=== PATIENT | male | born 1985 | race Caucasian/White ===

== ENCOUNTER 2020-05-12 06:54 | Outpatient (NON) | payer BC, SELFPAY ==
[2020-05-13 01:18] LABS: SARS-CoV-2 RNA PCR Negative
== END 2020-05-12 06:55 ==
PROVIDERS: PCP Family Medicine; Visit Provider Surgery
DX: Z20.828 Contact with and (suspected) exposure to other viral communicable diseases (principal); R50.9 Fever, unspecified; R52 Pain, unspecified
CPT/HCPCS: 87635; C9803; U0003

== ENCOUNTER 2022-07-16 04:48 | Observation (INO) | payer BC, SELFPAY ==
[2022-07-16] VITALS (38 sets, daily range): BP systolic 125–184; BP diastolic 69–115; PULSE 89–126; RESP 7–27; TEMP 36.4–37; O2SAT 88–100; BMI 30.9
--- NOTE | ~2022-07-16 | XR_ITS ---
Clinical Indication: Shortness of breath PA and lateral views of the chest: Comparison: None Findings: The lungs are clear, without evidence of focal consolidation or pleural effusion. Cardiome diastinal silhouette is within normal limits. Bones and soft tissues are unremarkable. Impression: Normal chest. Reviewed, dictated and finalized at [facility]. 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
--- NOTE | ~2022-07-16 | CT_ITS ---
EXAMINATION: CTA chest PE protocol DATE: 07/16/2022 17:48 INDICATION: hypoxia, shortness of breath TECHNIQUE: Computed tomography angiography (CTA) of the chest was performed with 100 mL Omnipaque-350 intravenous contrast timed to evaluate the pulmonary arteries. Coronal maximum intensity projection 3D-reconstructions were created by the technologist. The dose-length product (DLP) was 429.41 mGy-cm. Automated exposure control and iterative reconstruction technique were employed. COMPARISON: X-ray chest, same date. FINDINGS: Lung parenchyma and airways: Clear. Pleura: Unremarkable. Thoracic inlet, axillae and chest wall: Unremarkable. Thoracic aorta: Normal. Mediastinum: Normal. Heart and pericardium: Normal. Coronary artery calcifications: Absent. Upper abdomen: No significant finding. Bones: No acute osseous finding. Pulmonary arteries: Study quality: Degraded by slightly late contrast phase, moderate motion, and saloni m hardening, such that subsegmental and non-occlusive segmental emboli could be missed, particularly in the left lower lobe. No pulmonary emboli detected. IMPRESSION: Limited examination as detailed above, particularly with regard to evaluation of the left lower lobe. Within those constraints, no definite CT evidence of acute pulmonary embolus. Reviewed, dictated and finalized at location [facility]. EATION LEADER IMPRESSION: Limited examination as detailed above, particularly with regard to evaluation o f the left lower lobe. Within those constraints, no definite CT evidence of acu te pulmonary embolus.
--- NOTE | 2022-07-16 04:54 | ECG_ITS ---
Measurements Intervals Martin Rate: 121 P: 70 ME: 108 QRS: -6 QRSD: 72 T: 74 QT: 338 QTc: 481 Interpretive Statements SINUS TACHYCARDIA WITH SHORT ME INTERVAL PREMATURE ATRIAL CONTRACTION NONSPECIFIC ST & T-WAVE ABNORMALITY ABNORMAL ECG NO PREVIOUS ECG AVAILABLE FOR COMPARISON Electronically Signed On 07-16-2022 14:11:51 MENTAL HEALTH ORDERLY by Waqas Garcia M.D.
[2022-07-16 05:16] LABS: Basophils Absolute Auto 0.1 K/mm3 (0.0-0.1); Basophils Percent Auto 0.5 % (0.2-1.2); Eosinophils Absolute Auto 0.8 K/mm3 (0-0.3); Eosinophils Percent Auto 6.1 % (0-4.4); Hematocrit 51.8 % (42.0-52.0); Hemoglobin 18.2 g/dL (14.0-18.0); Immature Granulocyte Absolute 0.05 K/mm3 (0.00-0.031); Immature Granulocyte Percent A 0.4 % (0-0.5); Lymphocytes Absolute Auto 2.85 K/mm3 (0.9-3.2); Lymphocytes Percent Auto 21.1 % (18.3-44.2); Mean Corpuscular HGB Conc 35.1 g/dl (32-36); Mean Corpuscular Hemoglobin 31.2 pg (26-34); Mean Corpuscular Volume 88.7 fl (80-100); Mean Platelet Volume 10.3 fl (7.4-10.4); Monocytes Absolute Auto 0.6 K/mm3 (0.1-0.6); Monocytes Percent Auto 4.6 % (2.6-8.5); Neutrophils Absolute Auto 9.1 K/mm3 (1.3-6.7); Neutrophils Percent Auto 67.3 % (45.5-73.1); Platelet Count Result 297 k/mm3 (150-375); Red Blood Count 5.84 M/mm3 (4.6-6.20); White Blood Count 13.5 K/mm3 (4.5-10.0)
[2022-07-16 05:28] LABS: Alanine Aminotransferase 85 U/L (6-50); Albumin Level 4.6 g/dL (3.5-5.1); Alkaline Phosphatase 107 U/L (38-126); Anion Gap 8 mmol/L (8-16); Aspartate Amino Transferase 48 U/L (17-59); Blood Urea Nitrogen 10 mg/dL (9-20); Calcium 8.7 mg/dL (8.4-10.2); Carbon Dioxide 26 mmol/L (22-30); Chloride 106 mmol/L (98-107); Estimated CRCL calculation 103 ml/min; Estimated Glomerular Filt Rate > 60; Glucose 122 mg/dL (65-110); Potassium 3.9 mmol/L (3.4-5.0); Sodium 140 mmol/L (137-145)
--- NOTE | 2022-07-16 05:31 | ED.GENADULT ---
HPI - General Adult General Chief complaint: Shortness of Breath/Dyspnea Stated complaint: SOB Time Seen by Provider: 07/16/22 05:19 History of Present Illness HPI narrative: Patient 37-year-old gentleman who presents the emergency department with chief complaint of shortness of breath. Patient reports that yesterday he started having some coughing and reported that has been nonproductive and reported that started having increasing shortness of breath throughout the day patient states he has been wheezing the patient reports no chest pain no peripheral edema. The patient does report that he has been worse whenever he lays flat and reports that he has had where he gets short of breath with exertion. Patient reports no prior history of cardiac disease reports that he has not had a fever at home. Related Data Allergies Allergy/AdvReac Type Severity Reaction Status Date / Time No Known Allergies Allergy Verified 04/16/22 14:26 Review of Systems Review of Systems: A 10 system review of systems was completed on the patient and is negative except for what is stated in the HPI. Nursing and ancillary documentation was reviewed. [facility] Past Medical History Medical History Attention deficit hyperactivity disorder, predominantly inattentive type Cubital tunnel syndrome on right Family history of diabetes mellitus Obesity (BMI 30.0-34.9) Family History Family History Other Family history of diabetes mellitus Social History Social History Smoking status: Smoker, status unknown Alcohol intake: current Exam Narrative: GENERAL: Well-appearing, well-nourished, and in no acute distress. HEAD: Normocephalic, atraumatic. EYES: PERRLA and EOMI. ENT: Nares clear, no rhinorrhea or epistaxis. Mucous membranes moist. NECK: Supple. CHEST: Scattered wheezes to auscultation. No respiratory distress. HEART: Regular rate and rhythm. No murmur heard. Normal peripheral pulses. ABDOMEN: Soft, nontender, nondistended, normal active bowel sounds. EXTREMITIES: Normal range of motion. No edema. SKIN: Warm, dry, no rash. NEURO: No focal deficits. Alert and oriented x3. PSYCH: Normal mood and affect. Course Vital Signs Vital signs: Vital Signs Temperature 37.0 C 07/16/22 04:52 Pulse Rate 126 H 07/16/22 04:52 Respiratory Rate 26 H 07/16/22 04:52 Blood Pressure 184/104 H 07/16/22 04:52 Pulse Oximetry 90 07/16/22 04:52 Oxygen Delivery Room Air 07/16/22 04:52 Temperature 36.8 C 07/16/22 04:55 Pulse Rate 106 H 07/16/22 06:37 Respiratory Rate 26 H 07/16/22 06:37 Blood Pressure 134/87 07/16/22 06:37 Pulse Oximetry 90 07/16/22 06:37 Oxygen Delivery Nasal Cannula 07/16/22 06:10 Oxygen Flow Rate 2 07/16/22 06:10 Medical Decision Making MDM Narrative Medical decision making narrative: Differential diagnosis includes CHF, pneumonia, pulmonary embolism, ACS, bronchitis, bronchospasm COVID-19/influenza Patient was actively wheezing in the emergency department given 6 mg of Decadron and a DuoNeb was ordered for the patient. Chest x-ray interpreted by me showed no widened mediastinum no pneumothorax no focal infiltrate. The patient was ambulated his oxygen saturation went down to 89%. The patient is feeling much better at this time but is requiring supplemental oxygen with ambulation. In discussions with the patient's father who is a surgeon at our facility we are both concerned about the oxygen requirement and the plan will be to admit the patient Vital Signs Vital Signs: Vital Signs Temperature 37.0 C 07/16/22 04:52 Pulse Rate 126 H 07/16/22 04:52 Respiratory Rate 26 H 07/16/22 04:52 Blood Pressure 184/104 H 07/16/22 04:52 Pulse Oximetry 90 07/16/22 04:52 Oxygen Delivery Room Air 07/16/22 04:52
[2022-07-16] MEDS: BENZONATATE 100 MG CAPSULE 200 MG PO (05:36)
[2022-07-16] MEDS: ALBUTEROL SULFATE NEB 2.5 MG/3 ML INH INHALATION ×3 (05:41→20:12)
[2022-07-16] MEDS: IPRATROPIUM BR 0.02% INH SOLN 0.5 MG/2.5 ML VIAL INHALATION ×3 (05:41→20:12)
[2022-07-16 05:59] LABS: Magnesium 2.1 mg/dL (1.6-2.3)
--- NOTE | 2022-07-16 06:00 | PC.NURSE ---
Pt reports feeling much better after his breathing treatment, but wheezes are still heard throughout. Dr. Taylor notified.
[2022-07-16 06:01] LABS: Lactic Acid Reflex 1.3 mmol/L (0.7-2.0)
[2022-07-16 06:11] LABS: NT Pro B Type Natriuretic Pept < 20 pg/mL (19.9-100); Troponin I < 0.012 ng/mL (0.000-0.034)
[2022-07-16 06:19] LABS: D Dimer 0.37 ug/mL (<0.48)
[2022-07-16 06:20] LABS: Influenza A QL RT-PCR Negative (Negative); Influenza B QL RT-PCR Negative (Negative); RSV RNA, RT-PCR Negative (Negative); SARS-CoV-2 RNA PCR Negative
--- NOTE | 2022-07-16 06:47 | PC.NURSE ---
Walking oxygen saturation maintained 89-91% and his heart rate increased to 128. But pt tolerated ambulating well. Denies any worsening shortness of breath with exertion. Room air oxygen saturation 92% at this time. Dr. Taylor notified.
--- NOTE | 2022-07-16 07:53 | PC.NURSE ---
NC @ 1L to maintain sats >92. Will titrate as needed.
--- NOTE | 2022-07-16 07:57 | PC.NURSE ---
Pt titrated to 2L NC to maintain sats >92. Pt sats 98%
--- NOTE | 2022-07-16 09:14 | ADMGEN ---
This patient, Zak Wilkes, was admitted to Medical Room 341-01. Patient/family oriented to hospital policies and general routines including ID bracelet, bed and alarms, visiting hours, pain management, procedures, bathroom and other care routines, personal items, smoking policy, room service/diet, and visiting hours. Information on how to activate the Rapid Response Team has been discussed. Patient/Family are encouraged to report perceived risks to care and to ask questions if they do not understand what they are told or what they should do.
[2022-07-16] MEDS: predniSONE 20 MG TABLET 40 MG PO (11:03)
--- NOTE | 2022-07-16 12:50 | PM.IMHP ---
H&P: HPI History of Present Illness Date/Time: 07/16/22 12:50 Chief Complaint: Shortness of breath. Narrative: This is a pleasant 37-year-old male, former smoker (20 pack year history, quit 2 years ago) who presented to the emergency department from home for evaluation of shortness of breath. Patient provides the following history. For a couple of months he has had waxing and waning cold symptoms and he has a lingering, dry cough. He and his have a 7-month-old son who is now going to daycare and he initially thought his symptoms were due to viruses that his son picked up from daycare. He completed a Z-Luis Fernando a couple of weeks ago which did not seem to help. Over the last couple of days he has been getting short of breath with exertion and last night he felt as though he cannot take in a deep and he was wheezing throughout the night. He denies fever, chills, sweats, chest pain, pleuritic pain, palpitations, and lower extremity edema. He has no known history of cardiac or pulmonary disease and denies personal and family history of venous thromboembolism. He was afebrile on arrival to the emergency department. His SpO2 has occasionally dipped down into the upper 80s and he is currently on 2 L nasal cannula. Pertinent labs include a WBC count of 13.5, hemoglobin 18.2, D-dimer 0.37, troponin < 0.012, proBNP < 20, AST 85, lactic acid 1.3. He tested negative for influenza, RSV, and COVID. Chest x-ray was unremarkable. He is being admitted in this setting for further evaluation and treatment. Review of Systems Review of Systems: 12 systems were reviewed. No fever. Denies headache and sore throat. No syncope. No nausea, vomiting, or diarrhea. No history asthma or eczema. He had allergy shots when he was younger but still occasionally has seasonal allergy symptoms. He has some concerns for sleep apnea with occasional paroxysmal nocturnal dyspnea. He snores heavily. He has gained about 30 lb in the last year and a half which he attributes to the fact that he is now working from home. Except as documented, all other systems were reviewed and are negative. [facility] Past Medical History Medical History (Updated 07/16/22 @ 16:33 by Loren Donohue PA-C) Attention deficit hyperactivity disorder, predominantly inattentive type Kidney stones Surgical History Surgical History (Updated 07/16/22 @ 16:19 by Loren Donohue PA-C) History of wisdom tooth extraction Family History Family History Other Family history of diabetes mellitus Social History Social History (Updated 07/16/22 @ 16:21 by Loren Donohue PA-C) Social History: Surrogate medical decision maker: Vira Wilkes, spouse. Code status: Full code. Smoking packs per day: 1 Smoking cigarettes per day: 20.0 Years smoked: 20 Smoking pack-years: 20.00 Smoking status: Former smoker Additional smoking assessment comments: Quit about 2000. Alcohol intake: current Alcohol use details: Social alcohol use in moderation. Substance use: never Lack of Transportation: No Lack of Food: Never True Current Housing: I Have Housing Concerned About Future Housing: No Difficulty Paying Gas/Electric Bills: No Difficulty Paying for Meds: No Currently Unemployed: No Education: Decline to Answer Difficulty w/ Childcare or Family Care: No Additional living arrangements comments: Lives with spouse and 7-month-old son in [place]. 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 Spiritual care concerns: No Meds Home Medications and Allergies Home Medications Medication Instructions Recorded Confirmed Type dextroamphetamine-amphetamine 10 10 mg PO BID #60 tabs 03/25/22 07/16/22 Rx mg tablet (Adderall) sildenafil (pulm.hypertension) 20 20 mg PO DAILY 07/16/22 07/16/22 History mg tablet Allergies Allergy/AdvReac Type Severity Reaction Status Date / Time No Kn
[2022-07-16 14:07] LABS: CRP 2.2 mg/dL (<1.0)
[2022-07-16 14:20] LABS: Procalcitonin 0.1 ng/mL
[2022-07-16 18:13] LABS: Alveolar/Arterial O2 Gradient 38.8 mmHg; Base Excess ABG -2.7 mEq/l (+/-2.0); Carboxyhemoglobin 0.2 % THb (0-2.0); Fractional Inspired Oxygen 21 %; HCO3 ABG 20.8 mEq/l (22.0-26.0); Methemoglobin ABG 0.4 %THb (0-1.5); Oxygen Content ABG 22.4 %vol (16.0-22.0); Oxygen Saturation ABG 94.7 % (95.0-100.0); PCO2 ABG 33.1 mmHg (35.0-45.0); PO2 ABG 71.3 mmHg (80.0-100.0); Reduced Hemoglobin 5.4 %THb (0-5.0); pH ABG 7.416 (7.350-7.450)
[2022-07-16 18:14] LABS: Device ROOM AIR; Modified Allen's Test Pass; Site Drawn LEFT RADIAL
--- NOTE | 2022-07-16 18:53 | PM.CNPUL ---
Assessment and Plan Assessment and plan (1) Acute bronchospasm: Code(s): J98.01 - Acute bronchospasm Status: Acute Assessment and Plan: He has had a respiratory syndrome that has been lingering for about 2 months, now with increased coughing and shortness of breath; he failed out-patient azithromycin. He presented with mild hypoxemia, leukocytosis, elevated CRP, with increased heart rate and respiratory rate. He has negative imaging, CXR and CTA. He has an echo pending with bubble study to evaluate for intracardiac shunt. Serologies for influenza A,B, RSV and SARS-Co-V-2 are negative. His pulmonary arteries are prominent on CXR, but not enlarged on CTA. He is feeling better with prednisone, albuterol and ipratropium. I (2) Hypoxia: Code(s): R09.02 - Hypoxemia Status: Acute Assessment and Plan: He has mild hypoxemia, was on O2 at 2 L/min, now on room air when I was in the room. He has O2 off in order to have his ApneaLink tonight. He has a high probabilit of HAFSA however an ApneaLink in the hospital is not valid for getting a diagnosis of HAFSA or being eligible for equipment. He will need to have this repeated when he is at his baseline, as an outpatient. He may have mild hypoxemia at night which caused his increased hemoglobin. History of Present Illness History of Present Illness Consult date: 07/16/22 Requesting physician: Loren Donohue PA-C Chief complaint: Bronchospasm/Hypoxia Narrative: time of visit: 19:35 Jul 16, 2022 cc: shortness of breath, cough NEW: Zak Wilkes is a 37-year-old man who does not have a significant past medical history. He reports feeling less than well for about 2 months, starting a little bit before [place]. He had a cold with some nasal congestion and coughing which waxed and waned. He has a 7 month-old son who attends daycare, and although the baby has not been sick recently, he and his have passed around some respiratory symptoms over the last few moths that they thought might have come from the daycare. His and baby bounced back a little bit easier that he did. Yesterday he developed increased cough with a feeling that he could not catch his breath. He has not had any sputum production or chest pains. He has not had a sore throat, nasal congestion, N/V/D, rash or joint pain. He came to the ED because this was the most sick he has felt since all the symptoms started in April. There is no history of lung disease. He does not have asthma. As a child he had nasal seasonal allergies. He now only has nasal congestion when he is sick. He had an elevated respiratory rate and heart rate are present today. His CRP is elevated at 2.2, white blood cell count elevated 13.5 and hemoglobin is elevated 18.2 g/dL. These are non-specific findings. He stopped smoking 2 years ago, smoked 1 pack per day for 20 years. No vaping, no marijuana. Had allergy shots years ago. He reports a general weight gain of 30 lb in the last 18 months, now working from home. Overall he is sedentary. Sleep: He snores, wakes himself up at times gasping at night. He has nocturia 3-4 episodes at night. He has dreams during the night. Bedtime is 9:30 p.m., he wakes at 5 in the morning. He does not use an alarm. He does not generally feel refreshed. He does not have any leg symptoms bothering him before sleep and does not kick during sleep. DATA * 07/16/2022 - CXR - normal * 07/16/2022 - CTA - negative for any large PE. Pulmonary arteries: Study quality: Degraded by slightly late contrast phase, moderate motion, and beam hardening, such that subsegmental and non-occlusive segmental emboli could be missed, particularly in the left lower lobe. No pulmonary emboli detected. IMPRESSION: Limited examination as detailed above, particularly with regard to evaluation of the left
[2022-07-17 04:39] VITALS: BP 135/69; PULSE 93; RESP 18; TEMP 36.1; O2SAT 94
[2022-07-17 06:09] LABS: Hematocrit 44.5 % (42.0-52.0); Hemoglobin 15.3 g/dL (14.0-18.0); Mean Corpuscular HGB Conc 34.4 g/dl (32-36); Mean Corpuscular Hemoglobin 31.2 pg (26-34); Mean Corpuscular Volume 90.6 fl (80-100); Mean Platelet Volume 10.7 fl (7.4-10.4); Platelet Count Result 273 k/mm3 (150-375); Red Blood Count 4.91 M/mm3 (4.6-6.20); Red Cell Distribution Width 13.2 % (11.5-14.5); White Blood Count 18.8 K/mm3 (4.5-10.0)
[2022-07-17 06:24] LABS: Anion Gap 8 mmol/L (8-16); Blood Urea Nitrogen 12 mg/dL (9-20); Calcium 8.6 mg/dL (8.4-10.2); Carbon Dioxide 20 mmol/L (22-30); Chloride 110 mmol/L (98-107); Estimated CRCL calculation 127 ml/min; Estimated Glomerular Filt Rate > 60; Glucose 163 mg/dL (65-110); Magnesium 2.2 mg/dL (1.6-2.3); Potassium 4.2 mmol/L (3.4-5.0); Sodium 138 mmol/L (137-145)
[2022-07-17 08:00] VITALS: O2SAT 95
--- NOTE | 2022-07-17 08:00 | ECHO_ITS ---
Patient Info Name: Zak Wilkes Age: 37 years : 1985 Gender: Male Ht: 70 in Wt: 215 lbs BSA: 2.22 m2 HR: 93 bpm BP: 135 / 69 mmHg Technical Quality: Fair Exam Date: 07/17/2022 9:41 AM Exam Location: [facility] Pulmonary Exam Room: 341 Patient Status: Outpatient Admit Date: 07/16/2022 Staff Ordering Physician: Loren Donohue PA-C Home Health Travel Ot: Shannon Beck RDCS Attending Provider: Brad Telles MD Exam Type: CA echo doppler color flow Study Info Complete two-dimensional, color flow and Doppler transthoracic echocardiogram is performed. Summary 1. Complete two-dimensional, color flow and Doppler transthoracic echocardiogram is performed. 2. Left ventricular chamber dimension is normal. 3. Left ventricular systolic function is normal, estimated at 65-70%. 4. The left ventricular diastolic function is grade II diastolic dysfunction. 5. E/e' 7 is not elevated. 6. There is trace tricuspid valve regurgitation. 7. No pulmonary hypertension, estimated pulmonary arterial systolic pressure is 34 mmHg. Left Ventricle E/e' 7 is not elevated. Left ventricular chamber dimension is normal. Left ventricular systolic function is normal, estimated at 65-70%. The left ventricular diastolic function is grade II diastolic dysfunction. Right Ventricle Right ventricular systolic function is normal and with normal TAPSE 2.5 cm. Right ventricular chamber dimension is normal. Left Atria Left atrial chamber dimension is normal. Right Atria Right atrial chamber dimension is normal. Aortic Valve The aortic valve is trileaflet. There is no aortic valve stenosis. There is no aortic valve regurgitation. Pulmonic Valve There is no pulmonic regurgitation. Mitral Valve There is no mitral valve stenosis. There is no mitral valve regurgitation. Tricuspid Valve There is trace tricuspid valve regurgitation. No pulmonary hypertension, estimated pulmonary arterial systolic pressure is 34 mmHg. Pericardium/Pleural There is no pericardial effusion. Inferior Vena Cava Normal inferior vena cava with >50% collapse upon inspiration consistent with normal right atrial pressure, 5 mmHg. Aorta The aortic root size at the sinus of Valsalva is normal. Left Ventricular Outflow Tract Name Value Normal LVOT 2D LVOT Diameter 2.0 cm LVOT Doppler LVOT Peak Gradient 6 mmHg LVOT Mean Gradient 4 mmHg LVOT VTI 24 cm LVOT VTI/AV VTI Ratio 0.9 LVOT Stroke Volume 76 ml LVOT CO 18.6 l/min LVOT CI 8.4 l/min/m2 Pulmonic Valve Name Value Normal PV Doppler PV Peak Gradient 4 mmHg Mitral Valve
[2022-07-17 09:21] VITALS: PULSE 78; RESP 16; O2SAT 95
[2022-07-17] MEDS: ALBUTEROL SULFATE NEB 2.5 MG/3 ML INH INHALATION ×2 (09:21→12:14)
[2022-07-17] MEDS: IPRATROPIUM BR 0.02% INH SOLN 0.5 MG/2.5 ML VIAL INHALATION ×2 (09:21→12:14)
[2022-07-17 09:34] VITALS: PULSE 77; RESP 16
[2022-07-17] MEDS: predniSONE 20 MG TABLET 40 MG PO (10:06)
--- NOTE | 2022-07-17 11:12 | PM.PNPUL ---
Progress Note: A&P Assessment and Plan (1) Acute bronchospasm: Code(s): J98.01 - Acute bronchospasm Status: Acute Assessment and Plan: He has had a respiratory syndrome that has been lingering for about 2 months, now with increased coughing and shortness of breath; he failed out-patient azithromycin. He presented with mild hypoxemia, leukocytosis, elevated CRP, with increased heart rate and respiratory rate. He has negative imaging, CXR and CTA. He has an echo pending with bubble study to evaluate for intracardiac shunt. Serologies for influenza A,B, RSV and SARS-Co-V-2 are negative. His pulmonary arteries are prominent on CXR, but not enlarged on CTA. He is feeling better with prednisone, albuterol and ipratropium. start Advair 115/21 Two puffs BID, rinse and spit. prednisone taper 40 x 3, 30 x 3, 20 x 3, then stop. PF monitoring; predicted best is 611 L/min, lower limit of normal is 472 L/min; best when I tested him was 350 L/min, 57% predicted, low yellow zone. Check pre and post peak flows before discharge today (2) Hypoxia: Code(s): R09.02 - Hypoxemia Status: Acute Assessment and Plan: He had mild hypoxemia, was on O2 at 2 L/min, remains on room air with saturation 95%. He is now on room air. He may have mild hypoxemia at night which caused his increased hemoglobin. (3) Obstructive sleep apnea: Code(s): G47.33 - Obstructive sleep apnea (adult) (pediatric) Status: Acute Assessment and Plan: ApneaLink last night showed an apnea hypopnea index of 9, desaturation to 86%, 12 min or 3% of the night spent below 88%. This study is consistent with mild HAFSA however he was in the hospital with bronchospasm and hypoxemia. ApneaLink or other home sleep tests in the hospital setting are not sufficient to qualify a patient for a PAP device. He can follow up after discharge to address this issue. With a medical co-morbidity such as hypertension, mild HAFSA can be treated with PAP. He has had elevated BP this admission, is not on medication. Plan He feels 60-70% better compared to admission, and he is on room air with saturation 95%. Meds: He is starting Advair 115/21 Two puffs twice a day, rinse and spit. He can go home on this, prednisone taper 40 mg x days, 30 mg x 3 days, 20 mg x 3 days and stop. Albuterol rescue inhaler 1-2 puffs every 4 hours as needed for shortness of breath or wheezing. Peak flows QID and record. He has allergic asthma, needs to see an chairman emeritus after discharge. I recommend Dr Gerlado Jerez. Pt had allergy shots as a child. The patient can follow up in our office in 1-2 weeks if desired. His echo report is not available yet. He has mild HAFSA, and with a medical co-morbidity of hypertension, he should be able to qualify for an APAP without a trip to the sleep lab. He will have to repeat a home sleep test when he is at his baseline. Hospital HSTs are not interpreted an are not sufficient for qualifying for treatment. Time Spent With Patient Time with patient: 15 - 25 minutes Subjective Date/time seen: 07/17/22 11:12 Interval history: Observation hospital follow up : This patient is seen in follow up for hypoxemia and bronchospasm. He has had a lingering respiratory infection for the last 2 months which was much worse yesterday when he was coughing uncontrollably, could not catch his breath, felt close to passing out. He was extremely short of breath. His Vira is at the bedside. Patient feels much better, he is dressed and ready to go home. He is coughing without sputum production. He does feel that his secretions are lo
[2022-07-17 12:15] VITALS: PULSE 73; RESP 18
[2022-07-17 12:33] VITALS: PULSE 89; RESP 18
--- NOTE | 2022-07-17 12:47 | PM.DS ---
DS: Admitting Diagnosis Discharge Date Acute bronchospasm and hypoxia Admitting Diagnosis Shortness of breath DS: Discharge Diagnosis Discharge Diagnosis (1) Hypoxia: Code(s): R09.02 - Hypoxemia Status: Acute Assessment and Plan: Since arrival today he has had periods of time where his SpO2 is in the high 80s, currently on 2 L satting in the mid 90s. Pulmonary embolism is very unlikely with normal D-dimer however I do not have a good explanation for the hypoxia thus will check a CTA of the chest. CTA shows - Limited examination as detailed above, particularly with regard to evaluation of the left lower lobe. Within those constraints, no definite CT evidence of acute pulmonary embolus. Echo was ordered but full report is not back Pulmology consulted pt can follow up for further lung function tests and sleep study Pt can be discharged on oral abx course tapering dose of steroids and a inhaler. Unfortunately generic inhaler issues as insurance did not cover initial inhaler. (2) Acute bronchospasm: Code(s): J98.01 - Acute bronchospasm Status: Acute Assessment and Plan: He has been battling with URI symptoms the past couple of months. At the time of my evaluation he has some end-expiratory wheezing at the left base but lungs are otherwise clear. However he has been getting scheduled bronchodilators and was started on steroids. May have a component of reactive airway disease though no history of such. Chest x-ray is clear. Pulmonology consulted. (3) Elevated blood pressure reading: Code(s): R03.0 - Elevated blood-pressure reading, without diagnosis of hypertension Status: Acute Assessment and Plan: Blood pressure much improved (4) Suspected sleep apnea: Code(s): R29.818 - Other symptoms and signs involving the nervous system Status: Inactive Assessment and Plan: Apnea link ordered DS: Summary Hospital Course Hospital Course: Pleasant 37-year-old male, former smoker (20 pack year history, quit 2 years ago) who presented to the emergency department from home for evaluation of shortness of breath. Patient provides the following history. For a couple of months he has had waxing and waning cold symptoms and he has a lingering, dry cough. He and his have a 7-month-old son who is now going to daycare and he initially thought his symptoms were due to viruses that his son picked up from daycare. He completed a Z-[facility] a couple of weeks ago which did not seem to help. Over the last couple of days he has been getting short of breath with exertion and last night he felt as though he cannot take in a deep and he was wheezing throughout the night. He denies fever, chills, sweats, chest pain, pleuritic pain, palpitations, and lower extremity edema. He has no known history of cardiac or pulmonary disease and denies personal and family history of venous thromboembolism. He was afebrile on arrival to the emergency department. His SpO2 has occasionally dipped down into the upper 80s and he is currently on 2 L nasal cannula. Pertinent labs include a WBC count of 13.5, hemoglobin 18.2, D-dimer 0.37, troponin < 0.012, proBNP < 20, AST 85, lactic acid 1.3. He tested negative for influenza, RSV, and COVID. Chest x-ray was unremarkable. He is being admitted in this setting for further evaluation and treatment. Time Spent with Patient Time attestation: Total time spent providing and/or coordinating discharge services:40 minutes on the day of discharge Exam Narrative: General: Well-developed, well-nourished Respiratory: Respirations are nonlabored and he is speaking full sentences. wheezes at the left base but lungs are otherwise clear to auscultation. Cardiovascular: Regular rate and rhythm with S1-S2. No murmur, rub, or gallop. Gastrointestinal: Abdomen is soft, nontender, and nondistended with positive bowel sounds. Skin: Warm and dry. No rash or lesions on li
== END 2022-07-17 14:18 | disposition home or self-care (01) ==
LOC: ANHED 07:18 → ANH3MED 07-17 12:02
PROVIDERS: Physician Assistant; Admitting Provider Internal Medicine; Emergency Provider Emergency Medicine; PCP Family Medicine; Visit Provider Family Medicine
DX: R09.02 Hypoxemia (principal); J98.01 Acute bronchospasm; R03.0 Elevated blood-pressure reading, without diagnosis of hypertension; R29.818 Other symptoms and signs involving the nervous system; I51.89 Other ill-defined heart diseases; Z20.822 Contact with and (suspected) exposure to COVID-19; R94.31 Abnormal electrocardiogram [ECG] [EKG]; F90.9 Attention-deficit hyperactivity disorder, unspecified type; E66.9 Obesity, unspecified; Z68.30 Body mass index [BMI] 30.0-30.9, adult; Z79.899 Other long term (current) drug therapy; F10.90 Alcohol use, unspecified, uncomplicated; Z87.891 Personal history of nicotine dependence
CPT/HCPCS: 36415; 36600; 71046; 71275; 80048; 80053; 82375; 82805; 83050; 83605; 83735; 83880; 84145; 84484; 85025; 85027; 85380; 86140; 87637; 93005; 93306; 94640; 94762; 96374; 99285; A9270; G0378; J1100; J7512; Q9967

== ENCOUNTER 2022-10-01 09:01 | Outpatient (CLI) | payer BC, SELFPAY ==
--- NOTE | 2022-10-11 19:00 | WPDHOMESLEEP ---
Sleep Study - Home Unattended Date of Study: 10/01/22 Ordering Provider: Tyrese Marquez MD Interpreting Provider: Henny Esparza, DO Home Sleep Study Type: Apnea Link Air Height: 1.75 m Weight: 95.254 kg Body Mass Index: 31.0 Neck Circumference (inches): 16 [place]: 9 Reason for Sleep Study Unrefreshing sleep Sleep History The patient is a 37-year-old male with ADHD and history of tobacco use that had a sleep study ordered by his primary care for evaluation of sleep apnea. 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 He denies awakening from sleep short of breath. He rarely awakens at night with heartburn, belching or cough. He constantly snores loudly enough that others complain. He frequently has trouble sleeping when he has a cold. He denies waking up gasping for air throughout the night. He frequently has breathing problems at night observed by himself or others. He frequently sweats excessively at night. He occasionally has heart palpitations or irregular heartbeats during the night. He frequently falls asleep during the day but never while driving. He denies sleep paralysis and cataplexy. He frequently has trouble at school or work due to sleepiness. He occasionally experiences vivid dreamlike scenes upon awakening or falling asleep. He denies feeling afraid of going to sleep. He rarely has nightmares. He occasionally remembers his dreams. He frequently has thoughts racing through his mind. He rarely feels sad or depressed. He frequently has anxiety. He rarely has muscular tension. He denies noticing parts of his body jerk. He denies kicking during the night. He denies having crawling and aching feelings in his legs and denies having leg pain during the night. He rarely grinds his teeth during sleep but never awakens with morning jaw pain. He is rarely bothered by pain during the day. He denies being awakened by pain during the night. He constantly wakes up feeling stiff in the morning. He constantly wakes up with sore or achy muscles. He rarely wakes up with pain in the neck, spine or other joints. He goes to bed at 9:00 p.m. on weekdays and between 10 to 10:30 p.m. on weekends. When he takes his stimulant, it will take him 1 hour to fall asleep. Without stimulants, he can fall asleep quickly. He wakes up 4-5 times throughout the night for unknown reasons. When he awakens, he will read news articles, play on his phone, lives in [facility] and take care of his son. He can take him 2-3 hours to fall back asleep. He wakes up between 1:23 a.m. on both weekdays and weekends. He typically gets 3-5 hours of sleep per night. He currently lives with his and 9-month-old son. He does not consume any caffeinated beverages within 2 hours of bedtime. He does not engage in physical exercise before bedtime. He will read watch television before falling asleep. He will take naps in the afternoon or the evening but they are not refreshing. He drinks 2-3 caffeinated beverages per day. He drinks 1-2 alcoholic beverages per day. He quit smoking cigarettes in 2000. He denies recreational drug use. [facility] Past Medical History Medical History Attention deficit hyperactivity disorder, predominantly inattentive type Kidney stones Surgical History Surgical History History of wisdom tooth extraction Family History Family History Other Family history of diabetes mellitus Social History Social History Social History: Surrogate medical decision maker: Vira Chung, spouse. Code status: Full code. Smoking packs per day: 1 Smoking cigarettes per day: 20.0 Years smoked: 20 Smoking pack-years: 20.00 Smoking status: Former smoker Additional smoking assessment comments: Quit
[2022-10-11 19:46] VITALS: BMI 31.0
--- NOTE | 2023-04-14 15:35 | SLEEP ---
new calls [id number]
== END 2022-10-02 13:29 | disposition home or self-care (01) ==
LOC: ANHCSM 09:03
PROVIDERS: PCP Family Medicine; Visit Provider Family Medicine
DX: G47.33 Obstructive sleep apnea (adult) (pediatric) (principal)
CPT/HCPCS: 95806

== ENCOUNTER 2022-10-23 08:43 | Outpatient (CLI) | payer BC, SELFPAY ==
--- NOTE | 2022-11-12 07:55 | WPDSLEEPSTUD ---
Sleep Study Date of Study: 10/23/22 Ordering Provider: Tyrese Marquez MD Interpreting Physician: Earlene Moreira MD Sleep Study Type: CPAP Titration Height: 1.75 m Weight: 95.254 kg Body Mass Index: 31.0 Neck Circumference (inches): 16 [place]: 9 Reason for Sleep Study Patient had a home sleep test 10/01/22 that showed severe sleep apnea with AHI 40.3 and desaturation to 79%, and central apnea index of 4.7, 90 minutes of total monitoring time with probable Lino-Donnelly respirations. 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 He denies awakening from sleep short of breath.? He rarely awakens at night with heartburn, belching or cough.? He constantly snores loudly enough that others complain.? He frequently has trouble sleeping when he has a cold.? He denies waking up gasping for air throughout the night.? He frequently has breathing problems at night observed by himself or others.? He frequently sweats excessively at night.? He occasionally has heart palpitations or irregular heartbeats during the night.? He frequently falls asleep during the day but never while driving.? He denies sleep paralysis and cataplexy.? He frequently has trouble at school or work due to sleepiness.? He occasionally experiences vivid dreamlike scenes upon awakening or falling asleep.? He denies feeling afraid of going to sleep.? He rarely has nightmares.? He occasionally remembers his dreams.? He frequently has thoughts racing through his mind.? He rarely feels sad or depressed.? He frequently has anxiety.? He rarely has muscular tension.? He denies noticing parts of his body jerk.? He denies kicking during the night.? He denies having crawling and aching feelings in his legs and denies having leg pain during the night.? He rarely grinds his teeth during sleep but never awakens with morning jaw pain.? He is rarely bothered by pain during the day.? He denies being awakened by pain during the night.? He constantly wakes up feeling stiff in the morning.? He constantly wakes up with sore or achy muscles.? He rarely wakes up with pain in the neck, spine or other joints.? He goes to bed at 9:00 p.m. on weekdays and between 10 to 10:30 p.m. on weekends.? When he takes his stimulant, it will take him 1 hour to fall asleep.? Without stimulants, he can fall asleep quickly.? He wakes up 4-5 times throughout the night for unknown reasons.? When he awakens, he will read news articles, play on his phone, lives in [facility] and take care of his son.? He can take him 2-3 hours to fall back asleep.? He wakes up between 1:23 a.m. on both weekdays and weekends.? He typically gets 3-5 hours of sleep per night.? He currently lives with his and 9-month-old son.? He does not consume any caffeinated beverages within 2 hours of bedtime.? He does not engage in physical exercise before bedtime.? He will read watch television before falling asleep.? He will take naps in the afternoon or the evening but they are not refreshing.? He drinks 2-3 caffeinated beverages per day.? He drinks 1-2 alcoholic beverages per day.? He quit smoking cigarettes in 2000.? He denies recreational drug use. [facility] Past Medical History Medical History Attention deficit hyperactivity disorder, predominantly inattentive type Impacted cerumen of right ear Kidney stones Surgical History Surgical History History of wisdom tooth extraction Family History Family History Other Family history of diabetes mellitus Social History Social History Social History: Surrogate medica
[2022-11-12 16:12] VITALS: BMI 31.0
== END 2022-10-24 06:31 | disposition home or self-care (01) ==
LOC: ANHCSM 08:44
PROVIDERS: PCP Family Medicine; Visit Provider Family Medicine
DX: R06.3 Periodic breathing (principal)
CPT/HCPCS: 95811

== ENCOUNTER 2024-12-07 11:55 | Emergency (ER) | payer BC, SELFPAY ==
[2024-12-07 12:09] VITALS: BP 152/112; PULSE 82; RESP 18; TEMP 36.3; O2SAT 100
--- NOTE | 2024-12-07 12:18 | ED.EAR ---
HPI - Ear Problem General Chief complaint: Ear Stated complaint: Ear Pain Time Seen by Provider: 12/07/24 12:17 Source: patient and RN notes reviewed Mode of arrival: ambulatory Limitations: no limitations History of Present Illness HPI Narrative: 39-year-old male presents with concern for left ear pain. Reports pain started on Friday. He denies runny nose, stuffy nose, sore throat, cough. Denies fever. Denies drainage from the ear. MD Complaint: ear pain Related Data Allergies Allergy/AdvReac Type Severity Reaction Status Date / Time No Known Allergies Allergy Verified 12/07/24 12:08 Review of Systems Review of Systems: CONSTITUTIONAL: Denies malaise, chills, sweats, or fever. EYES: Denies visual changes, redness, or discharge. ENT: Denies rhinorrhea, congestion, sinus pain, and sore throat. Reports left ear pain CARDIOVASCULAR: Denies chest pain, palpitations, or edema. RESPIRATORY: Denies cough. Denies dyspnea. GASTROINTESTINAL: Denies abdominal pain, nausea, vomiting, diarrhea SKIN: Denies rash or itching. MUSCULOSKELETAL: Denies myalgia. NEUROLOGIC: Denies headache. All systems reviewed & are unremarkable except as noted in HPI and below PMFSH Past Medical History Medical History Impacted cerumen of right ear Kidney stones Attention deficit hyperactivity disorder, predominantly inattentive type Surgical History Surgical History History of wisdom tooth extraction Family History Family History Other Family history of diabetes mellitus Social History Social History Social History: Surrogate medical decision maker: Vira Chung, spouse. Code status: Full code. Caffeine-daily Smoking status: Former smoker Smoking end date: 05/26/00 Additional smoking assessment comments: Quit about 2000. Alcohol intake: current Alcohol use details: Social alcohol use in moderation. Substance use: never Current Housing: Decline to Answer Concerned About Future Housing: Decline to Answer Difficulty Paying Gas/Electric Bills: Decline to Answer Difficulty Paying for Meds: Decline to Answer Currently Unemployed: Decline to Answer Education: Decline to Answer Difficulty w/ Childcare or Family Care: Decline to Answer Additional living arrangements comments: Lives with spouse and 7-month-old son in [place]. 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 Spiritual care concerns: No Comments At time of signature, agree with nursing past medical, surgical, social and family history. There is no relevant family history pertinent to the presenting complaint Exam Narrative: GENERAL: Well-appearing, well-nourished, and in no acute distress. HEAD: Normocephalic EYES: PERRLA, conjunctivae clear ENT: Nares clear, turbinates edematous, clear discharge. Mucous membranes moist. TM pearly ray with sharp light reflex on the right, left TM not visible due to drainage and EAC erythema and edema; no tragal tenderness, right EAC unremarkable. No post or pre-auricular erythema, induration, or warmth noted. Oropharynx not erythematous without lesions. Tonsils not enlarged and without exudate, no drooling, no hoarseness, no trismus, uvula midline. NECK: Supple. No lymphadenopathy CHEST: Clear to auscultation, breath sounds equal. No wheezing, rhonchi, rales, or stridor. No respiratory distress, speaks in full sentences. HEART: Regular rate and rhythm. No murmur heard. SKIN: Warm, dry, no rash. NEURO: Alert and oriented x3. PSYCH: Normal mood and affect Course Course Emergency Course: Patient is aware of diagnosis, understands and agrees to treatment plan. Anticipatory guidance given. Patient agrees to follow-up as directed and is aware of reasons to seek care at the emergency department. Portions of this record may have been created with voice recognition software Level of Care: Express Care Visit Vital Signs Vital signs: Vital Signs Temperature 97.4 F L 12/07/24 12:09 Pulse Rate 82 12/07/24 12:09 Respiratory Rate 18 12/07/24 12:09 Blood Pressure 152/112 H 12/07/24 12:09 Pulse Oximetry 100 12/07/24 12:09 Oxygen Delivery Room Air 12/07/24 12:09 Temperature 97.4 F L 12/07/24 12:09 Pulse Rate 82 12/07/24 12:09 Respiratory Rate 18 12/07/24 12:09 Blood Pressure 152/112 H 12/07/24 12:09 Pulse Oximetry 100 12/07/24 12:09 Oxygen Delivery Room Air 12/07/24 12:09 Reviewed. Medical Decision Making MDM Narrative Medical decision making narrative: I evaluated this in the [facility] care. History is obtained from patient who is an independent historian and physical exam was performed.? Available medical records were reviewed. ? Exam findings and relevant testing show no acute concerns or changes; patient is non-toxic appearing and is in no distress. Differential diagnosis considered: Ambriz virus, strep pharyngitis, allergic rhinitis, upper respiratory tract infection, sinusitis, rhinosinusitis, nasopharyngitis. viral pharyngitis, otitis media, otitis externa, otitis effusion, pre/post auricular cellulitis, mastoiditis, cerumen impaction, foreign body. Exam findings show no acute concerns or changes; patient is non-toxic appearing and is in no distress. Patient is appropriate for outpatient treatment and follow-up. ? Differential diagnosis and treatment plan were discussed with the patient. Patient agrees with discussion and after shared medical decision making agrees with plan of care. All questions were answered to the patient's satisfaction. Patient is appropriate for outpatient treatment and follow-up. Vital Signs Vital Signs: Vital Signs Temperature 97.4 F L 12/07/24 12:09 Pulse Rate 82 12/07/24 12:09 Respiratory Rate 18 12/07/24 12:09 Blood Pressure 152/112 H 12/07/24 12:09 Pulse Oximetry 100 12/07/24 12:09 Oxygen Delivery Room Air 12/07/24 12:09 Temperature 97.4 F L 12/07/24 12:09 Pulse Rate 82 12/07/24 12:09 Respiratory Rate 18 12/07/24 12:09 Blood Pressure 152/112 H 12/07/24 12:09 Pulse Oximetry 100 12/07/24 12:09 Oxygen Delivery Room Air 12/07/24 12:09 Critical Care Time Critical Care Time Critical Care Time: No Discharge Plan Discharge Clinical Impression: Otitis externa Patient Disposition: Home Condition: Stable Instructions: How to Use Ear Drops (ED) Additional Instructions: 1) Please follow-up with your primary care doctor if your symptoms are not improving. 2) If you have any urgent concerns please go to the ER. 3) Please take medications as prescribed and continue taking your home medications as usual. 4) Please read and follow information included in discharge instructions. Patient Language: Lao Prescriptions: New [id number] 3.5-10,000-1 mg/mL-unit/mL-% drops,suspension 4 drop LEFT EAR Q8H 7 Days Qty: 10 0RF No Action bupropion HCl [Wellbutrin XL] 150 mg tablet extended release 24 hr 150 mg PO QAM Qty: 30 1RF dextroamphetamine-amphetamine [Adderall] 15 mg tablet 15 mg PO BID Qty: 60 0RF Rx Instructions: administer doses at least 4-6 hours apart Follow-up/Referrals: Tyrese Marquez MD [Primary Care Provider] - Stand Alone Forms: Work/School Release IP
== END 2024-12-07 12:46 | disposition home or self-care (01) ==
PROVIDERS: Emergency Provider Nurse Practitioner; PCP Family Medicine
DX: H60.92 Unspecified otitis externa, left ear (principal); F90.9 Attention-deficit hyperactivity disorder, unspecified type; Z87.891 Personal history of nicotine dependence
CPT/HCPCS: 99213; G0463